=== PATIENT | male | born 1980 | race Caucasian/White ===

== ENCOUNTER 2023-08-05 07:40 | Emergency (ER) | payer OTHER, SELFPAY ==
[2023-08-05 07:47] VITALS: BP 133/76; PULSE 93; TEMP 37; O2SAT 99; BMI 26.4
--- NOTE | 2023-08-05 07:52 | XR_ITS ---
The [address] [id number] Patient Name: ROXI NGUYEN MRN: [id number] date: 1980 Sex: M Assigned Patient Location: ER Current Patient Location: ED.MAIN Accession/Order Number: [id number] Exam Date: 08/05/2023 08:05 Report Date: 08/05/2023 08:28 At the request of: REYES GARCIA Procedure: XR acute abdomen series EXAMINATION: XR acute abdomen series HISTORY: poss esoph tear eval for free air COMPARISON: No relevant comparison available. FINDINGS: LUNGS: No infiltrate, pneumothorax, or pleural effusion. MEDIASTINUM: No abnormal widening. BOWEL GAS PATTERN: Non-obstructed. FREE AIR: None. CALCIFICATIONS: Right nephrolithiasis.r indeterminate 3.3 cm coarse calcifications left lateral low pelvis BONES: No fracture or visible bone lesion. 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 XR/XR acute abdomen series IMPRESSION: No free intraperitoneal or mediastinal air Clear lungs Coarse calcification left pelvis, indeterminate Electronically authenticated by: ZOFIA PADILLA Date: 08/05/2023 08:28
--- NOTE | 2023-08-05 07:55 | ED_ITS ---
HPI HPI - General Adult General Chief complaint: Abdominal Pain Stated complaint: Esophagus Time Seen by Provider: 08/05/23 07:44 Source: patient Mode of arrival: walk-in Limitations: no limitations History of Present Illness HPI narrative: Patient presents to ED complaining of possible esophageal tear. He has a history of Esophageal stricture and hiatal hernia. He has Had GI appointments in the past and he has had scopes in the past but this was about 11 years ago. He did get dilated in the past. He states that anytime he eats food it seems to get stuck near his diaphragm and then he has to drink liquid to push it the rest of the way down. He does have an appointment next week on with a GI doctor for further management. However family was concerned that he possibly has an esophageal tear because he has had more pain than his normal. They also report a low-grade temperature at home. He does not have a fever here. He appears well-hydrated. He states he thinks he stretched his esophagus out and it is just tender now but he is not sure so he came in for further evaluation. Related Data Previous Rx's ?Medication ?Instructions ?Recorded omeprazole magnesium 20 mg 20 mg PO DAILY #14 tabs 08/05/23 tablet,delayed release (Prilosec OTC) sucralfate 100 mg/mL oral 1 g (10 mL) PO .qhs #200 mL 08/05/23 suspension (Carafate) Allergies Allergy/AdvReac Type Severity Reaction Status Date / Time No Known Drug Allergies Allergy Verified 08/05/23 07:52 Opioid HPI Opioid Management Most Recent Opioid Data: Last Pain Scale 4 08/05/23 07:56 Review of Systems ROS Status of ROS 10 or more systems reviewed and unremark able except as noted in history and below Exam Narrative Exam Narrative: Time Seen: [] Vital Signs: [Per nurse's notes.] General: [Alert] Skin: [Warm, dry, no rash.] Head: [Normocephalic, atraumatic.] Neck: [Supple, trachea midline.] Eye: [Pupils are equal, round and reactive to light, extraocular movements are intact, normal conjunctiva.] Ears, nose, mouth and throat: oral mucosa moist. Cardiovascular: [Regular rate and rhythm, no murmur.] Respiratory: [Lungs are clear to auscultation, respirations are non-labored, breath sounds are equal.] Chest wall: [No tenderness, no deformity.] Gastrointestinal: [Soft, nontender, non distended, normal bowel sounds.] MSK: 5 out of 5 muscle strength x 4 extremities no calf pain or edema Lymphatics: [No lymphadenopathy.] Psychiatric: [Cooperative, appropriate mood & affect.] Neurological: [Alert and oriented to person, place, time, and situation, no focal neurological deficit observed.] Constitutional Vital Signs, click to edit/add: Last Vital Signs Temp 98.6 F 08/05/23 07:47 Pulse 93 H 08/05/23 07:47 Resp 18 08/05/23 07:47 BP 133/76 08/05/23 07:47 Pulse Ox 99 08/05/23 07:47 O2 Del Method Room Air 08/05/23 07:47 Course Vital Signs Vital signs: Vital Signs Temperature 98.6 F 08/05/23 07:47 Pulse Rate 93 H 08/05/23 07:47 Respiratory Rate 18 08/05/23 07:47 Blood Pressure 133/76 08/05/23 07:47 Pulse Oximetry 99 08/05/23 07:47 Oxygen Delivery Method Room Air 08/05/23 07:47 Temperature 98.6 F 08/05/23 07:47 Pulse Rate 93 H 08/05/23 07:47 Respiratory Rate 18 08/05/23 07:47 Blood Pressure 133/76 08/05/23 07:47 Pulse Oximetry 99 08/05/23 07:47 Oxygen Delivery Method Room Air 08/05/23 07:47 Medical Decision Making MDM Narrative Medical decision making narrative: Patient's x-ray is normal and does not show any free air or evidence of esophageal tear. No mediastinal air. Patient states the GI cocktail helped some but did not really soothe the upper abdominal pain but did help with the throat and esophageal pain. Patient has an appointment next week with his primary doctor. I will start him on Prilosec and Carafate. Use that for a week and see how it is going, when you get to the primary doctor to see if anything needs changed. He also needs a GI doctor appointment and I will refer him to [facility]'s, they also said they were going to look in [place]. Differential Diagnosis Differential Diagnosis: Esophageal tear, esophagitis, GERD Medical Records Medical records reviewed: Yes I reviewed the patient's medical records Imaging Data Abdominal x-ray: Radiologist's impression: ITS Impressions Chest/Abdomen X-ray 08/05/23 07:52 IMPRESSION: No free intraperitoneal or mediastinal air Clear lungs Coarse calcification left pelvis, indeterminate Electronically authenticated by: ZOFIA PADILLA Date: 08/05/2023 08:28 Discharge Plan Discharge Stand Alone Forms: Portal Instructions Chief Complaint: Abdominal Pain Clinical Impression: Chronic GERD Patient Disposition: Home, Self-Care Time of Disposition Decision: 08:47 Mode of Transportation: Private Vehicle Prescriptions / Home Meds: New sucralfate [Carafate] 100 mg/mL suspension 1 g PO .qhs Qty: 200 0RF omeprazole magnesium [Prilosec OTC] 20 mg tablet,delayed release (DR/EC) 20 mg PO DAILY Qty: 14 0RF Print Language: Andorran Instructions: Diet for Stomach Ulcers and Gastritis (ED), GERD (Gastroesophageal Reflux Disease) (ED) Referrals: VITOR MISHRA DO [Primary Care Provider] - 1 week TIMOTHY MOREIRA [Physician] - 1 week
[2023-08-05] MEDS: lidocaine HCL 15 ML, MAG HYDROX/ALUMINUM HYD/SIMETH 30 ML, HYOSCYAMINE SULFATE 0.25 MG PO (08:16)
[2023-08-05 08:56] VITALS: PULSE 81; O2SAT 98
== END 2023-08-05 08:57 | disposition home or self-care (01) ==
PROVIDERS: Emergency Provider Emergency Medicine; PCP Family Medicine
DX: K21.9 Gastro-esophageal reflux disease without esophagitis (principal)
CPT/HCPCS: 74022; 99284